=== PATIENT | male | born 1965 | race Caucasian/White ===

== ENCOUNTER 2023-08-15 08:51 | Outpatient (CLI) | payer BC, SELFPAY ==
--- NOTE | 2023-08-15 09:03 | ECG_ITS ---
SEE SCANNED COPY FOR CONFIRMED REPORT MTDD
== END 2023-08-15 08:52 | disposition home or self-care (01) ==
PROVIDERS: PCP Registered Nurse; Visit Provider Otolaryngology
DX: E78.5 Hyperlipidemia, unspecified (principal)
CPT/HCPCS: 93005

== ENCOUNTER 2023-08-21 03:44 | Day surgery (SDC) | payer BC, SELFPAY ==
[2023-08-14 12:58] VITALS: BMI 30.6
--- NOTE | 2023-08-14 13:11 | PC.NURSE ---
Report to the Outpatient Waiting Room, entrance under the green pavilion located off [facility], at time 7:30 on date 08/21/23. Planned Procedure Time: 9:30. Time changes happen often and if your time is changed the preop area will call you the afternoon before. - You and your visitor will be asked to self-screen and do not enter if you have any COVID symptoms. - A mask is optional within the hospital at this time. Patients may have clear liquids (water, carbonated beverages, clear teas, apple juice) until 3 hours prior to surgery (6:30) with a maximum of 20 ounces. - No food from midnight until time of surgery Take the following medications with a SIP of water the morning of surgery: METOPROLOL DO NOT STOP ANY OF YOUR OTHER PRESCRIPTION MEDICATIONS PRIOR TO SURGERY ?EXCEPT THE FOLLOWING Medications to discontinue per physician: VITAMINS/SUPPLEMENTS Date to take last dose: 08/17/[address] PHAM REGARDING ASPIRIN Please no make-up, nail belgian, hairspray, perfume, deodorant, or body powder the day of surgery. No jewelry (including any body piercings) or valuables the day of surgery, leave them at home. Please take a shower or bath the night before, or the morning of, surgery with an antibacterial soap. Wear comfortable, loose fitting clothing. - Jewelry must be removed prior to entering the operating room. Rings and piercings that are not removed may be cut off. - The hospital will not accept responsibility for valuables. - Please leave all valuables, including medications, at home the day of surgery. If you are going home after surgery, a licensed tractor trailer moving van driver must drive you home. - NO public transportation without another adult if you receive anesthesia. - We recommend that an adult stay with you for 24 hours following discharge. - We also recommend that you do not drive, make important decision, drink alcoholic beverages, or take any drugs that were not prescribed by your health care provider for at least 24 hours after your discharge time. Follow any additional instructions given to you from your surgeon. If you or anyone in your household have experienced Covid symptoms in the past week, please notify your surgeon or the nurse liaison at the phone number below for possible testing. Telephone instructions given to PT Elly LIGHT and asked if any additional questions and then verbalized understanding. Patient advised to call surgeon office or pre surgery nurse liaison [phone] if any additional questions.
[2023-08-21] VITALS (8 sets, daily range): BP systolic 112–128; BP diastolic 75–93; PULSE 53–64; RESP 14–17; TEMP 36.4; O2SAT 95–100; BMI 29.7
--- NOTE | 2023-08-21 07:13 | PM.IMHP ---
H&P: HPI History of Present Illness Date/Time: 08/21/23 07:13 Chief Complaint: vallecular cyst Narrative: chronic pharyngitis, vallecular cyst Review of Systems Review of Systems: All systems reviewed & are unremarkable except as noted in HPI and below PMFSH Social History Social History Smoking status: Never smoker Tobacco type: smokeless tobacco Smokeless tobacco user: chewing tobacco Smoking end date: 04/24/09 Alcohol intake: never Substance use: never Substance use type: does not use Living arrangements: with family Spiritual care concerns: No Meds Home Medications and Allergies Home Medications Medication Instructions Recorded Confirmed Type aspirin 81 mg capsule 81 mg PO DAILY 08/14/23 08/14/23 History atorvastatin 20 mg tablet 20 mg PO DAILY 08/14/23 08/14/23 History glucosamine sulf dipot 1 cap PO DAILY 08/14/23 08/14/23 History chlr,msm,chond 550 mg-C 30 mg-patricia 1 mg capsule (Glucosamine Chondroitin) metoprolol tartrate 25 mg tablet 25 mg PO BID 08/14/23 08/14/23 History Allergies Allergy/AdvReac Type Severity Reaction Status Date / Time No Known Allergies Allergy Verified 08/14/23 12:58 Exam Narrative: vallecular/BOT cyst noted on CT neck. rest of exam wnl. 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 r/b/a reviewed, all questions answered, pt understands and agrees to proceed. refer to outpt H&P for further details.
--- NOTE | 2023-08-21 07:14 | WPDHPUPDATE1 ---
History and Physical Update Update Date/Time: 08/21/23 07:14 History and Physical has been reviewed, including an updated exam of the patient. There are NO changes in the patient's condition. Risks, benefits, and alternatives have been discussed and questions answered. Patient agrees to proceed with procedure.
--- NOTE | 2023-08-21 08:39 | P.PNAN_ITS ---
Anes - Initial Pre Proc Eval Procedure: Operation Date: 08/21/23 09:30 Proposed Procedures p Direct Laryngoscopy with Biopsy - Ronald Lara MD Date/Time: 08/21/23 08:39 Surgeon: Ronald Lara MD Pre Op Diagnosis: Chronic Pharyngitis Patient Data Age: 58 Gender: M Height: 1.91 m Weight: 107.8 kg Last Vital Signs Temp 36.4 C L 08/21/23 08:16 Pulse 59 L 08/21/23 08:16 Resp 14 08/21/23 08:16 BP 116/86 08/21/23 08:16 Pulse Ox 97 08/21/23 08:16 O2 Del Method Room Air 08/21/23 08:16 Allergies Allergy/AdvReac Type Severity Reaction Status Date / Time No Known Allergies Allergy Verified 08/21/23 07:57 Home Medications Medication Instructions Recorded Confirmed Type aspirin 81 mg capsule 81 mg PO DAILY 08/14/23 08/14/23 History atorvastatin 20 mg tablet 20 mg PO DAILY 08/14/23 08/14/23 History glucosamine sulf dipot 1 cap PO DAILY 08/14/23 08/14/23 History chlr,msm,chond 550 mg-C 30 mg-patricia 1 mg capsule (Glucosamine Chondroitin) metoprolol tartrate 25 mg tablet 25 mg PO BID 08/14/23 08/14/23 History Patient hx anesthesia problems: none Family hx anesthesia problems: none Results Review: All pre-operative results and documents have been reviewed as part of the pre- operative evaluation. [facility] Past Medical History Medical History (Updated 08/21/23 @ 08:40 by Osman Sweeney MD) Overweight Surgical History Surgical History Heart valve replaced Social History Social History Smoking status: Never smoker Tobacco type: smokeless tobacco Smokeless tobacco user: chewing tobacco Smoking end date: 04/24/09 Alcohol intake: never Substance use: never Substance use type: does not use Living arrangements: with family Spiritual care concerns: No Anes - Eval Final PreProcedure Day of Procedure 08/21/23 08:39 Patient weight: overweight Heart: regular rate and rhythm Lungs: clear to auscultation Airway: Mallampati scale class II Neurological: alert and oriented Last oral intake: >/= 8 hours ASA classification: III Emergent: no Anesthetic plan: proceed Anesthesia type and monitoring: general ETT and standard monitoring Results Review: All pre-operative results and documents have been reviewed as part of the pre- operative evaluation. Informed Consent: The patient's anesthetic plan and its attendant risks and benefits were discussed with the patient/family/POA. Questions were solicited and answers provided to the satisfaction of the patient/family/POA.
[2023-08-21] MEDS: LACTATED RINGERS 1,000 ML 30 ML IV CONT (09:00)
--- NOTE | 2023-08-21 09:32 | W.PM.PROC2 ---
Procedure Note - Detailed Date of Procedure 08/21/23 Pre-op Diagnosis Chronic Pharyngitis Post-op Diagnosis Same Procedure Performed Direct Laryngoscopy with biopsy Surgeon Ronald Lara MD Anesthesia General Indications Vallecular cyst Findings Minimal tongue base cyst/vallecular cyst with prominent lingual tonsils. Description of Procedure On the date of surgery, the patient was identified in the preoperative holding area. All questions answered, consent signed and verified and they agreed to proceed. They were then brought to the OR and placed under general endotracheal anesthesia with a 6.5 sized endotracheal tube. A shoulder roll was placed. Timeout was performed verifying the correct patient identity and procedure to be performed which they were. The patient was then draped in standard fashion for direct laryngoscopy with biopsy. The bed was rotated 90 degrees counter-clockwise and a dental guard was placed to protect the upper teeth. A laryngoscope was then advanced in the oral cavity and upper airway to visualize all subsites of the oral cavity, oropharynx, hypopharynx and larynx. The only lesions noted were on the vallecula/base of tongue. The patient was then suspended from the hassan stand. Under endoscopic visualization, using biopsy forceps, these lesions were removed with minimal damage to the healthy mucosa. Minimal bleeding occurred and did not require significant intervention for hemostasis. With all specimen removed, the procedure was concluded. The laryngoscope was removed, the dental guard removed, and the oral cavity was examined showing no injury to lips, gums, teeth or tongue. Care of the patient was returned to anesthesia who extubated the patient and transferred to the PACU for recovery in stable condition without complication. Estimated Blood Loss 1 Drains No Packing No Pathology Yes (vallecula/base of tongue) Complications No immediate complications Condition Stable Disposition PACU
[2023-08-21] MEDS: ceFAZolin 2 GM/D5W 50 ML 2 GM/50 ML BAG IVPB (09:44)
== END 2023-08-21 11:30 | disposition home or self-care (01) ==
PROVIDERS: PCP Registered Nurse; Visit Provider Otolaryngology
PROC: 0CJS8ZZ Inspection of Larynx, Via Natural or Artificial Opening Endoscopic (ICD-10-PCS; CPT 31535; principal; 2023-08-21 09:30)
DX: K14.8 Other diseases of tongue (principal); F17.220 Nicotine dependence, chewing tobacco, uncomplicated; Z79.82 Long term (current) use of aspirin; Z95.2 Presence of prosthetic heart valve
CPT/HCPCS: 31535; 88305; A9270; J0690; J1100; J2250; J2405; J2704; J3010; J7120

== ENCOUNTER 2025-03-24 16:40 | Emergency (ER) | payer BC, OTHER, SELFPAY ==
--- OUTSIDE RECORDS SUMMARY | 2025-03-24 16:43 | XMS_ITS | Encounter Summary ---
Author Organization [facility] Address [address] [place] [address] Care Team Providers Care Retail Clerk Name Role Phone Unavailable Primary Care Provider Unavailabl e Encounter Details Date Type Department Care Team (Late st Contact Info) Description 08/02/2021 Lab Requisition [facility] DermPath Lab [address], [place] [address] Lopez Potter MD [address] [place] [address] Social History Tobacco Use Types Packs/Day Years Used Date Smoking Tobacco: Never Assessed Sex and Gender Information Value Date Recorded Sex Assigned at Not on file Legal Sex Male 3:37 PM CDT Gender Identity Not on file Sexual Orientation Not on file documented as of this encounter Plan of Treatment Not on file documented as of this encounter Procedures Procedure Name Priority Date/Time Associated Diagnosis Comments DERMATOPATHOLOGY Routine 07/30/2021 12:0 0 AM CDT documented in this encounter Results * DERMATOPATHOLOGY (07/30/2021 12:00 AM CDT) Case Report Dermatopathology Report Case: [id number] Authorizing Provider: Lopez Potter MD Collected: 07/30/2021 12:00 AM Ordering Location: [facility] DermPath Lab Received: 08/02/2021 04:31 PM Pathologist: Geno Hopkins MD Specimen: Skin, right shoulder 2 4:37 PM CDT DERMATOPATHOLOGY LABORATORY Final Diagnosis Specimen A. SKIN, right shoulder: NEUROFIBROMA (D36.10) 2 4:37 PM CDT DERMATOPATHOLOGY LABORATORY at 1637 CDT Clinical History Nevus R/O Atypia. Path# [id number] 2 4:37 PM CDT DERMATOPATHOLOGY LABORATORY Gross Description Specimen A: Received is one formalin filled container labeled with the patient's name and designated right shoulder. The specimen consists of a shave biopsy measuring [id number]. Jar 0. 2 4:37 PM CDT DERMATOPATHOLOGY LABORATORY Microscopic Description Specimen A. SKIN, right shoulder: Sections show a proliferation of spindled and S-shaped cells within the dermis. The stromal collagen is delicate and pale. 2 4:37 PM CDT DERMATOPATHOLOGY LABORATORY Disclaimer An external and internal positive and negative controls are appropriate for the histochemical, immunohistochemical and immunofluorescence stain(s) in this case (if any), except where stated explicitly. The performance characteristics of the stain(s) cited in this report were developed and its performance characteristic determined by the Dermatopathology Laboratory at [facility], directed by Dr. Megan Meier. These tests need not be, and therefore are not, approved by the [place] Food and Drug Administration. The tests are used for clinical purposes. Billing Codes Specimen Charges Stain Charges 22562 1 2 4:37 PM CDT DERMATOPATHOLOGY LABORATORY Embedded Images 2 4:37 PM CDT DERMATOPATHOLOGY LABORATORY Pathology/Cytolog y TISSUE SPECIMEN FROM SKIN / Unknown 07/30/2021 08/02/2021 4:31 PM CDT us Lopez Potter MD LAB - PATHOLOGY/CYTOLOGY ORDER EARLINE Final Result DERMATOPATHOLOGY LABORATORY [facility] - Department of Dermatology [address] [place] [address], [facility] [phone] documented in this encounter Visit Diagnoses Not on filedocumented in this encounter
--- OUTSIDE RECORDS SUMMARY | 2025-03-24 16:43 | XMS_ITS | Encounter Summary ---
Author Organization [facility] Address [address] [place] [address] Care Team Providers Care Housing Inspectors Name Role Phone Unavailable Primary Care Provider Unavailabl e Encounter Details Date Type Department Care Team (Late st Contact Info) Description 08/03/2022 Lab Requisition [facility] DermPath Lab [address], [place] [address] Lopez Potter MD [address] [place] [id number] Social History Tobacco Use Types Packs/Day Years [...] Priority Date/Time Associated Diagnosis Comments DERMATOPATHOLOGY Routine 08/03/2022 12:0 0 AM CDT documented in this encounter Results * DERMATOPATHOLOGY (08/03/2022 12:00 AM CDT) Case Report Dermatopathology Report Case: [id number] Authorizing Provider: Lopez Potter MD Collected: 08/03/2022 12:00 AM Ordering Location: [facility] DermPath Lab Received: 08/03/2022 03:42 PM Pathologist: Destiney Lazo MD Specimen: Skin, left anti-helix 11:29 AM CDT DERMATOPATHOLOGY LABORATORY Final Diagnosis Specimen A. SKIN, left anti-helix: SQUAMOUS CELL CARCINOMA IN SITU, PRESENT AT THE BASE OF THE SPECIMEN (D04.22) (see microscopic description and comment) 04/14/202 3 11:29 AM CDT DERMATOPATHOLOGY LABORATORY at 1129 CDT Clinical History AK vs. SCC Path: [id number] 3 11:29 AM CDT DERMATOPATHOLOGY LABORATORY Gross Description Specimen A: Received is one formalin filled container labeled with the patient's name and designated left anti-helix. The specimen consists of a shave biopsy measuring 4x3x1 mm. Jar 0. 3 11:29 AM CDT DERMATOPATHOLOGY LABORATORY Microscopic Description Specimen A. SKIN, left anti-helix: The epidermis shows parakeratosis, full thickness disorderly maturation of keratinocytes, mitoses at different levels, and dyskeratotic cells. The lesion extends to the base of the biopsy. COMMENT: An invasive squamous cell carcinoma cannot be ruled out. 3 11:29 AM CDT DERMATOPATHOLOGY LABORATORY Disclaimer An external and internal positive and negative controls are appropriate for the histochemical, immunohistochemical and immunofluorescence stain(s) in this case (if any), except where stated explicitly. The performance characteristics of the stain(s) cited in this report were developed and its performance characteristic determined by the Dermatopathology Laboratory at [facility], directed by Dr. Megan Meier. These tests need not be, and therefore are not, approved by the [place] Food and Drug Administration. The tests are used for clinical purposes. Billing Codes Specimen Charges Stain Charges 31124 1 3 11:29 AM CDT DERMATOPATHOLOGY LABORATORY Embedded Images 3 11:29 AM CDT DERMATOPATHOLOGY LABORATORY Pathology/Cytolog y TISSUE SPECIMEN FROM SKIN / Unknown 08/03/2022 08/03/2022 3:42 PM CDT us Lopez Potter MD LAB - PATHOLOGY/CYTOLOGY ORDER EARLINE Final Result DERMATOPATHOLOGY LABORATORY [facility] - Department of Dermatology [address] [place] [address], [facility] [phone] documented in this encounter Visit Diagnoses Not on filedocumented in this encounter
[2025-03-24 17:23] VITALS: BP 152/92; PULSE 70; RESP 16; TEMP 36.7; O2SAT 98
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
--- OUTSIDE RECORDS SUMMARY | 2025-03-24 21:19 | XMS_ITS | Encounter Summary ---
Author Organization [facility] Address [facility] [place] [address] Care Team Providers Care Cardiology Physician Assistant Name Role Phone Trent Mcdowell MD Primary Care Provider [phone] Maurice Acuña MD Unavailable [phone] Maurice Acuña MD Primary Care Provider [phone] Juany Turner DROSOPHERE OPERATOR Primary Care Provider [phone] Encounter Details Date Type Department Care Team (Late st Contact Info) Description 08/01/2017 Abstract [facility] at [address] [address] Elizabeth Min MA Social History Tobacco Use Types Packs/Day Years Used Date Smoking Tobacco: Never Assessed Sex and Gender Information Value Date Recorded Sex Assigned at Male 05/10/2021 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 [address] [place] [id number] Sis Silva PA [address] [facility], [address] [place] [address] documented as of this encounter Procedures Procedure Name Priority Date/Time Associated Diagnosis Comments CBC (OUTSIDE LAB) Routine 08/09/2016 COMPREHENSIVE METABOLIC PANEL Routine 08/09/2016 LIPID PANEL Routine 08/09/2016 THYROID STIM HORMONE TSH Routine 08/09/2016 documented in this encounter Results * THYROID STIM HORMONE, TSH (08/09/2016) TSH 1.73 08/09/2016 us Doc [facility] Final Result * LIPID PANEL (08/09/2016) CHOLESTEROL 230 HDL 41 TRIGLYCERIDES 124 LDL (CALCULATED) 164.2 08/09/2016 us Doc [facility] Final Result * (ABNORMAL) COMPREHENSIVE METABOLIC PANEL (08/09/2016) SODIUM S/P/B 141 POTASSIUM S/P/B 4.5 CO2 27 CHLORIDE S/P/B 107 GLUCOSE 94 mg/dL CALCIUM S/P/B 9.8 BUN 19 CREATININE S/P/B 0.96 0.7 - 1.3 EGFR NON-AFR. AMER. >60 <=90 ALKALINE PHOSPHATASE S/P/B 69 ALT 22 AST 23 BILIRUBIN TOTAL S/P/B 0.7 ALBUMIN S/P/B 2.0(A) 3.5 - 5.0 TOTAL PROTEIN S/P/B 7.1 08/09/2016 us Doc [facility] Final Result * CBC (OUTSIDE LAB) (08/09/2016) WBC 6.9 HGB 16.5 HCT 47.9 PLT 233 08/09/2016 us Doc [facility]-OUTSIDE/ABSTRACTED Final Result documented in this encounter Visit Diagnoses Not on filedocumented in this encounter Care Teams Cardiology Physician Assistant Relationship Specialty Start Date End Date Trent Mcdowell MD [address] [place] [address] [address] [place], [place] [id number] PCP - General FAMILY PRACTICE 07/23/17 09/08/18 Maurice Acuña MD [address] [place], [place] [address] PCP - General INTERVENTIONAL CARDIOLOGY 09/09/18 10/17/18 Juany Turner FNP [address] [place], [place] [address] PCP - General Nurse Practitioner Family 03/19/19 Maurice Acuña MD [address] [place], [place] [address] Hampton Oim Architect CARDIOVASCULAR DISEASE 08/01/17 documented as of this encounter
--- OUTSIDE RECORDS SUMMARY | 2025-03-24 21:19 | XMS_ITS | Encounter Summary ---
Author Organization [facility] Address [facility] [place] [address] Care Team Providers Care Pellet Machine Operator Name Role Phone Trent Mcdowell MD Primary Care Provider + [phone] Maurice Acuña MD Unavailable [phone] Maurice Acuña MD Primary Care Provider [phone] Juany Turner ORACLE SECURITY CONSULTANT Primary Care Provider [phone] Encounter Details Date Type Department Care Team (Late st Contact Info) Description 11/22/2017 [facility] at [address] [address] Elizabeth Min MA Social History Tobacco Use Types Packs/Day Years Used Date Smoking Tobacco: Never Smokeless Tobacco: Former Chew Alcohol Use Standard Drinks/Week Comments Yes 0 (1 standard drink = 0.6 oz pur e alcohol) Occasional Sex and Gender Information Value Date Recorded Sex Assigned at Male 05/10/2021 3:22 PM YARN WASHER Legal Sex Male 7:08 PM CDT Gender Identity Male 05/10/2021 3:22 PM YARN WASHER Sexual Orientation Straight 05/10/2021 3: 22 PM YARN WASHER 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 Answer Date of Assessment Author Status No 08/25/2017 5:05 PM CDT Activ e * Do you have serious difficulty walking or climbing stairs? Answer Date of Assessment Author Status No 08/25/2017 5:05 PM CDT Sena Fowler NP Active * Do you have difficulty dressing or bathing? Answer Date of Assessment Author Status No 08/25/2017 5:05 PM CDT Sena Fowler NP Active * Because of a physical, mental, or emotional condition, do you have difficulty doing errands alone such as visiting a doctor's office or shopping? Answer Date of Assessment Author Status No 08/25/2017 5:05 PM CDT Sena Fowler NP Active documented as of this encounter Mental Status * Because of a physical, mental, or emotional condition, do you have serious difficulty concentrating, remembering, or making decisions? Answer Entry Date Author Status No 08/25/2017 5:05 PM CDT Sena Fowler NP Active documented in this encounter Plan of Treatment Upcoming Encounters Date Type Department Care Team (Late st Contact Info) Description 02/06/2026 12:00 PM CDT Office Visit [facility] [address] [place] [address] Sis Silva PA [address] [place] [address], [address] [place] [address] documented as of this encounter Procedures Procedure Name Priority Date/Time Associated Diagnosis Comments COMPREHENSIVE METABOLIC PANEL Routine 06/19/2024 LIPID PANEL Routine 06/19/2024 THYROID STIM HORMONE TSH Routine 06/19/2024 CBC (OUTSIDE LAB) Routine 11/28/2017 COMPREHENSIVE METABOLIC PANEL Routine 11/28/2017 BASIC METABOLIC PANEL Routine 11/14/2017 THYROID STIM HORMONE TSH Routine 11/14/2017 documented in this encounter Results * COMPREHENSIVE METABOLIC PANEL (06/19/2024) Pathologist [facility] SODIUM S/P/B 141 GLUCOSE 92 mg/dL AST 56 BUN 16 CREATININE S/P/B 0.91 0.7 - 1.3 CALCIUM S/P/B 9.7 POTASSIUM S/P/B 4.5 CHLORIDE S/P/B 104 ALT 30 GFR ESTIMATE >60 Default History Genericprovider LABORATORY Final Result * LIPID PANEL (06/19/2024) Pathologist [facility] CHOLESTEROL 198 TRIGLYCERIDES 202 HDL 39 DIRECT LDL 111 Default History Genericprovider LABORATORY Final Result * THYROID STIM HORMONE TSH (06/19/2024) Pathologist [facility] TSH 1.710 Default History Genericprovider LABORATORY Final Result * CBC (OUTSIDE LAB) (11/28/2017) [facility] WBC 6.6 HGB 14.4 HCT 43.5 PLT 302 11/28/2017 Doc [facility] LAB-OUTSIDE/ABSTRACTED Final Result * COMPREHENSIVE METABOLIC PANEL (11/28/2017) Pathologist [facility] SODIUM S/P/B 140 POTASSIUM S/P/B 4.1 CO2 25.7 CHLORIDE S/P/B 103 GLUCOSE 93 mg/dL CALCIUM S/P/B 9.4 BUN 18 CREATININE S/P/B 0.94 0.7 - 1.3 EGFR AFR. AMER. >90 EGFR NON-AFR. AMER. >90 <=90 ALKALINE PHOSPHATASE S/P/B 103 ALT 35 AST 32 BILIRUBIN TOTAL S/P/B 0.8 ALBUMIN S/P/B 3.7 3.5 - 5.0 TOTAL PROTEIN S/P/B 7.7 11/28/2017 us Doc [facility] LABORATORY Final Result * THYROID STIM HORMONE, TSH (11/14/2017) TSH 1.551 11/14/2017 us Doc [facility] LABORATORY Final Result * BASIC METABOLIC PANEL (11/14/2017) SODIUM S/P/B 140 POTASSIUM S/P/B 4.0 CO2 27.8 CHLORIDE S/P/B 105 GLUCOSE 97 mg/dL CALCIUM S/P/B 9.3 BUN 17 CREATININE S/P/B 0.87 0.7 - 1.3 EGFR AFR. AMER. >90 EGFR NON-AFR. AMER. >90 <=90 11/14/2017 us Doc [facility] LABORATORY Final Result documented in this encounter Visit Diagnoses Not on filedocumented in this encounter Care Teams Pellet Machine Operator Relationship Specialty Start Date End Date Trent Mcdowell MD [address] [place] [address] [place], [place] [id number] PCP - General FAMILY PRACTICE 07/23/17 09/08/18 Maurice Acuña MD [facility] [address] [address] PCP - General INTERVENTIONAL CARDIOLOGY 09/09/18 10/17/18 Juany Turner FNP [address] [place] [address] PCP - General Nurse Practitioner Family 03/19/19 Maurice Acuña MD [facility] [address] [place] [address] [place] Clothing Pattern Preparer CARDIOVASCULAR DISEASE 08/01/17 documented as of this encounter
--- OUTSIDE RECORDS SUMMARY | 2025-03-24 21:19 | XMS_ITS | Encounter Summary ---
Author Organization [facility] Address [facility] [place] [address] Care Team Providers Care Practice Office Associate Name Role Phone Trent Mcdowell MD Primary Care Provider [phone] Maurice Acuña MD Unavailable [phone] Maurice Acuña MD Primary Care Provider [phone] Juany Turner INBOUND SALES REPRESENTATIVE Primary Care Provider [phone] Encounter Details Date Type Department Care Team (Late st Contact Info) Description 08/09/[address] [facility] [place] [address] Maurice Acuña MD [facility] [address] [place] [address] Social History Tobacco Use Types Packs/Day Years Used Date Smoking Tobacco: Never Smokeless Tobacco: Former Chew Alcohol Use Standard Drinks/Week Comments Yes 0 (1 standard drink = 0.6 oz pur e alcohol) little Sex and Gender Information Value Date Recorded Sex Assigned at Male 05/10/2021 3:22 PM RN ADMISSIONS Legal Sex Male 7:08 PM CDT Gender Identity Male 05/10/2021 3:22 PM RN ADMISSIONS Sexual Orientation Straight 05/10/2021 3 :22 PM RN ADMISSIONS Occupation Industry Job Start Date Job End Date Not on file Not on file Not on file Not on file documented as of this encounter Plan of Treatment Upcoming Encounters Date Type Department Care Team (Late st Contact Info) Description 02/06/2026 12:00 PM CDT Office Visit [facility] [address] [place] [address] Sis Silva PA [address] [facility] [address] [place] [address] documented as of this encounter Visit Diagnoses Not on filedocumented in this encounter Care Teams Practice Office Associate Relationship Specialty Start Date End Date Trent Mcdowell MD [address] [place] [address] [place] [id number] PCP - General FAMILY PRACTICE 07/23/17 09/08/18 Maurice Acu[facility] MD [facility] [address] [place], [place] [address] PCP - General INTERVENTIONAL CARDIOLOGY 09/09/18 10/17/18 Juany Turner FNP [facility] [address] [place] [address] PCP - General Nurse Practitioner Family 03/19/19 Maurice Acu[facility] MD [facility] [address] [place], [place] [address] [place] Supervisor Microfilm Duplicating Unit CARDIOVASCULAR DISEASE 08/01/17 documented as of this encounter
--- OUTSIDE RECORDS SUMMARY | 2025-03-24 21:19 | XMS_ITS | Clinical Summary ---
Author Organization [facility] Address [address] [place] [address] Care Team Providers Care Group Work Program Aide Name Role Phone Maurice Acuña MD Unavailable [phone] Juany Turner VENDING MACHINE COIN COLLECTOR Primary Care Provider [phone] Allergies No known active allergies Medications Coenzyme Q10 (COQ-10) 100 MG Cap Take 1 capsule by mouth every morning. 8 Active Misc Natural Products (GLUCOSAMINE CHONDROITIN ADV) Tab Take 1 tablet by mouth daily. 8 Active aspirin (CVS ASPIRIN ADULT LOW DOSE) 81 MG chewable tabletIndications:P resence of prosthetic heart valve Chew 1 tablet (81 mg total) by mouth daily. 2 Active famotidine (PEPCID) 20 MG tablet Take 1 tablet (20 mg total) by mouth daily as needed for Heartburn. Active fexofenadine (MARTÍN) 180 MG tablet Take 1 tablet (180 mg total) by mouth daily as needed for Allergies. Active ibuprofen (MOTRIN) 200 MG tablet Take 2 tablets (400 mg total) by mouth every 6 (six) hours as needed for Pain. Active atorvastatin (LIPITOR) 20 MG tabletIndications:M ixed hyperlipidemia Take 1 tablet (20 mg total) by mouth daily. 90 tablet 3 5 Active metoprolol tartrate (LOPRESSOR) 25 MG tablet Take 1 tablet (25 mg total) by mouth 2 (two) times daily. 180 tablet 3 5 Active Active Problems Problem Noted Date Diagnosed Date Abnormal radiologic findings on diagnostic imaging of left kidney 03/19/2019 Presence of prosthetic heart valve 12/14/2017 Overview (08/13/2018): Note: DR TESS EMERSON Date Onset: 08/10/2017 Date Onset: 12/14/2017 Assessment & Plan (01/31/2025 2:04 PM CDT): He is status post surgical AVR. He had an echo in January 2024 that showed a well-functioning bioprosthetic aortic valve. Can consider repeating an echo in 2026. Assessment & Plan (01/26/2024 9:45 AM CDT): Check echo this year. Continue antibiotic prophylaxis prior to dental procedures. Nonrheumatic aortic valve insufficiency 08/29/19 Overview (08/13/2018): Date Onset: 08/10/17 Assessment & Plan (05/05/2023 8:13 PM ENVIRONMENTAL AIR SPECIALIST): He presented with severe aortic regurgitation upon establishing care with cardiology. He subsequent underwent surgical aortic valve replacement. He is doing well. We can repeat an echo next year. Continue antibiotic prophylaxis prior to dental procedures. Assessment & Plan (02/07/2022 12:07 PM CDT): He presented with severe aortic regurgitation upon establishing care with cardiology. He subsequent underwent surgical aortic valve replacement. He is doing well. We can repeat an echo next year. Continue antibiotic prophylaxis prior to dental procedures. Assessment & Plan (12/18/2020 1:58 PM CDT): He has a history of severe aortic regurgitation and is status post aortic valve replacement. He had an echocardiogram this year that showed a well-functioning bioprosthetic aortic valve. Continue metoprolol. Continue antibiotic prophylaxis prior to any dental procedure. Hemorrhoids 09/10/2013 Overview (08/13/2018): Date Onset: 09/10/2013 Mixed hyperlipidemia 09/28/2011 Assessment & Plan (01/31/2025 2:04 PM CDT): His LDL is 128. His current ASCVD risk score is 6.2%. I do not think that we need to make an adjustment to the dosage of his atorvastatin. Assessment & Plan (01/26/2024 9:46 AM CDT): His LDL is 128. His current ASCVD risk score is 6.2%. I do not think that we need to make an adjustment to the dosage of his atorvastatin. Assessment & Plan (05/05/2023 8:14 PM ENVIRONMENTAL AIR SPECIALIST): Continue atorvastatin. Assessment & Plan (02/07/2022 12:05 PM CDT): Continue atorvastatin. Assessment & Plan (12/18/2020 1:58 PM CDT): His last lipid panel was from 2018. Continue atorvastatin and he will require another lipid panel. Resolved Problems Problem Noted Date Diagnosed Date Resolved Date History of aortic valve replacement 09/04/2018 01/22/2019 Knee pain 2018 07/21/2021 GERD without esophagitis 01/23/2018 Overview (04/03/2018): Date Onset: 01/23/2018 Mixed hyperlipidemia 11/19/2017 019 Status post aortic valve replacement 09/18/2017 02/25/2019 Transient global amnesia 08/24/201704/2018 History of aortic valve disease 08/22/2017 01/22/2019 Overview (08/13/2018): Date Onset: 08/22/2017 Aortic insufficiency 08/10/2017 018 History of aortic regurgitation 08/09/2017 02/25/2019 Malignant neoplasm of scalp and skin of neck 4 01/22/2019 Overview (08/13/2018): Date Onset: 09/10/2013 Dyslipidemia 01/22/2019 Encounters Date Type Department Care Team Description 01/31/2025 12:15 PM CDT Office Visit [facility] [address] [place] [address] Maurice Acuña MD Aortic Valve Disorder; Lipids 01/31/2025 Travel from Last 3 Months Immunizations Immunization Administration Dates Next Due Fluzone 6 Months+ Quad (0.5 mL Prefilled Syringe) 02/05/2020,01/22/2019 Influenza (Generic) 01/23/2018,02/03/2016,2013 Influenza Adult (Generic) 01/22/2019,01/23/2018, 02/02/2016 MODERNA COVID-19 (12+) MRNA, LNP-S, PF, 100 MCG/ 0.5 ML DOSE 06/24/2020,05/27/2020 Tdap (Generic) 02/25/2019 Tdap (Historical Only-select from magnify glass) 02/25/2019 Family History Medical History Relation Comments Shortness of breath Brother Having heat testing done Heart Attack Father On transplant laxmi chiang Had complications and then Cancer Maternal Uncle 1 Cancer Maternal Uncle 2 Cancer Maternal Uncle 3 Cancer Mother Diabetes Mother Stroke Mother mini stroke from leaking heart valve for 20 years Relation Status Comments Brother Alive Father (Age 51) Maternal Grandfather Maternal Grandmother Maternal Uncle 1 Maternal Uncle 2 Maternal Uncle 3 Mother Alive Paternal Grandfather Paternal Grandmother Social History Tobacco Use Types Packs/Day Years Used Date Smoking Tobacco: Never Smokeless Tobacco: Former Chew Quit: 09/22/2005 Tobacco Cessation:Counseling Given: Not Answered Alcohol Use Standard Drinks/Week Comments Yes 1 (1 standard drink = 0.6 oz pure alcohol) Occasional- 1-2 times per month PHQ-2 Answer Date Recorded Patient Health Questionnaire-2 Score 0 05/11/2023 Education Answer Date Recorded What is the highest level of school you have completed or the highest degree you have received? 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 Not on file Not on file Last Filed Vital Signs Vital Sign Reading Time Taken Comments Blood Pressure 120/86 01/31/2025 12:10 PM CDT Pulse 61 01/31/2025 12:10 PM CDT Temperature 36.4 C (97.6 F) 11/28/2023 1:55 PM CDT Respiratory Rate 16 11/28/2023 1:55 PM CDT Oxygen Saturation 98% 01/31/2025 12:10 PM CDT Inhaled Oxygen Concentration - - Weight 107.5 kg (237 lb) 01/31/2025 12:10 PM CDT Height 190.5 cm (6' 3) 01/31/2025 12:10 PM CDT Body Mass Index 29.62 01/31/2025 12:10 PM CDT Plan of Treatment Upcoming Encounters Date Type Department Care Team (Late st Contact Info) Description 02/06/2026 12:00 PM CDT [facility] [address] [place] [address] Sis Silva PA [address] [place] [address], [address] [place] [address] Health Maintenance Due Date Last Done Comments Annual Physical 08/16/1967 Pneumococcal Vaccine: 50+ Years (1 of 2 - PCV) 08/16/1983 Colorectal Cancer Screening Colonoscopy (10 Years) 10/17/2023 10/16/2013, 04/20/2011 PHQ-2 (Physician [place]) 04/24/2024 05/11/2023 RSV Immunization or 60+ Years (1 - Risk 60-74 years 1-dose series) 2024 COVID-19 Vaccine ( - season) 2024 02/22/2021, 06/24/2020, 05/27/2020 Influenza Adult (#1) 2025 02/23/2022, 03/19/2021, 02/05/2020, Additional history exists DTaP, Tdap and Td Vaccines (3 - Td or Tdap) 02/25/2029 02/25/2019, 02/25/2019 Hepatitis C Completed 03/04/2019 Zoster Vaccines Completed 02/28/2023, 12/09/2022 Hepatitis A Vaccines Aged Out No long er eligible based on patient's age to complete this topic Meningococcal B Vaccine Aged Out No l onger eligible based on patient's age to complete this topic Meningococcal Vaccine Aged Out No aracely renard eligible based on patient's age to complete this topic RSV Immunizations Under 20 Months Aged Out No longer eligible based on patient's age to complete this topic Medical Devices Implanted Type Area Cupola Melting Supervisor Device Identifier Shelf Expiration Date Model / Serial / Lot Valve Mitral Mosaic 27mm - [id number] Implanted:Qty: 1 on 08/10/2017 by Daily, Nicolas Dotson MD at [facility] Valve Implant N/A: Heart [employer] - CARDIAC SURGERY - DIV MEDTRO 09/22/2021 / [id number] / Kevin/Wire Ii Sternotomy Suture Kit Implanted:Qty: 1 on 08/10/2017 by Daily, Nicolas Dotson MD at [facility] Wire N/A: Sternum A&Accipiter Radar 05/25/2022 [id number] / / [id number] Kevin/Wire Ii Sternotomy Suture 1/2 Cherie, [id number] Implanted:Qty: 1 on 08/10/2017 by Daily, Nicolas Dotson MD at [facility] Wire N/A: Sternum A&Accipiter Radar 04/24/2022 [id number] / / [id number] Procedures Procedure Name Priority Date/Time Associated Diagnosis Comments HEPATITIS C ANTIBODY Routine 03/04/2019 9:23 AM ENVIRONMENTAL AIR SPECIALIST Screening examination for poliomyelitis Abdominal pain, generalized Nausea COLONOSCOPY GENERIC (SCAN ORDER) Routine 10/16/2013 from Last 3 Months or Most Recently Relevant to Health Maintenance Results * HEPATITIS C ANTIBODY (03/04/2019 9:23 AM ENVIRONMENTAL AIR SPECIALIST) HEPATITIS C AB NON-REACTI VE NON-REACTI VE 03/04/2019 2:59 PM ENVIRONMENTAL AIR SPECIALIST [facility] 03/04/2019 9:23 AM ENVIRONMENTAL AIR SPECIALIST [facility] Final Res ult [facility] [address] [place] [address], * COLONOSCOPY (10/16/2013) us Documents Scanned SCANNING Final Result from Last 3 Months or Most Recently Relevant to Health Maintenance Insurance [facility] Advance Directives * Full Code (Latest Code Status on File) Date Activated Date Inactivated Comments 08/09/2017 4:38 PM 08/16/2017 2:09 PM Care Teams Group Work Program Aide Relationship Specialty Start Date End Date Juany Turner FNP [facility] [place], [place] [address] PCP - General Nurse Practitioner Family 03/19/19 Maurice Acuña MD [facility] [address] [place], [place] [address] [place] Cook Sauce CARDIOVASCULAR DISEASE 08/01/17
--- OUTSIDE RECORDS SUMMARY | 2025-03-24 21:19 | XMS_ITS | Clinical Summary ---
Author Organization [facility] Address [address] [facility] [place] [address] Care Team Providers Care Onshore Diver Name Role Phone Unavailable Primary Care Provider Unavailabl e Source Comments [facility],non-owned Affiliates and Associated Physician Practices is amultiple site organization consisting of ambulatory clinics and hospital sitesin [place], [place], [place] and [place]. This disclosure is being madepursuant to the Care Everywhere program and may not contain all information available regarding this patient. Last updated 18.[facility] Social History Tobacco Use Types Packs/Day Years Used Date Smoking Tobacco: Never Assessed Sex and Gender Information Value Date Recorded Sex Assigned at Not on file Legal Sex Male 3:37 PM CDT Gender Identity Not on file Sexual Orientation Not on file Plan of Treatment Health Maintenance Due Date Last Done Comments COLOGUARD (AGES 45-75) - COL ON CA SCREENING 1964 COLON MONITORING 1964 COLONOSCOPY - COLON CA SCREENING 1964 CT COLONOGRAPHY - COLON CA SCREENING 1964 Colorectal Cancer Screening 1964 FIT - COLON CA SCREENING 1964 FLEX SIG - COLON CA SCREENING 1964 LIPID TESTING 1964 HIV SCREENING 08/16/1979 HEPATITIS C SCREENING 08/11/1982 DTAP/TDAP/TD VACCINES (1 - Tdap) 08/16/1983 PNEUMOCOCCAL VACCINE 50+ (1 of 1 - PCV) 2014 ZOSTER VACCINE (1 of 2) 2014 DEPRESSION SCREENING 04/24/2024 COVID-19 VACCINE (1 - 2024-2 6 season) 2024 INFLUENZA VACCINE (#1) 2024 Respiratory Syncytial Virus (RSV) Vaccine Pt: or over 60 yrs (1 - 1-dose 75+ series) 08/16/2039 HEPATITIS B VACCINE Aged Out No longe r eligible based on patient's age to complete this topic HIB VACCINE Aged Out No longer eligi ble based on patient's age to complete this topic HPV VACCINE Aged Out No longer eligi ble based on patient's age to complete this topic MENINGOCOCCAL (Group B) VACC INE SHARED DECISION-MAKING Aged Out No longer eligibl e based on patient's age to complete this topic MENINGOCOCCAL GROUPS A/C/Y/W VACCINE Aged Out No longer eligible b ased on patient's age to complete this topic Insurance * Guarantor: RENE ORTIZ Account Type Relation to Patient Date of Phone Billing Address Personal/Family [address] [place] [address] [facility] SELF PAY NO INSURANCE Member Subscriber Plan / Payer (Ef fective for All Dates) Name:Rene Ortiz Member ID:Not on file Relation to Subscriber:Not on file Name:RENE ORTIZ Subscriber ID:Not on file (Home) Address: [facility] [place] [address] Payer ID:Not on file Group ID:Not on file Type:Self Pay Address: [place], [place] * Guarantor: RENE ORTIZ Account Type Relation to Patient Date of Phone Billing Address Personal/Family [address] [place] [address] [facility] SELF PAY NO INSURANCE Member Subscriber Plan / Payer (Ef fective for All Dates) Name:Rene Ortiz Member ID:Not on file Relation to Subscriber:Not on file Name:RENE ORTIZ Subscriber ID:Not on file (Home) Address: [address] [place] [address] [address] [place] [address] Payer ID:Not on file Group ID:Not on file Type:Self Pay Address: [place], [place] * Guarantor: RENE ORTIZ Account Type Relation to Patient Date of Phone Billing Address Personal/Family [address] [facility] [address] [place] [address] [facility] SELF PAY NO INSURANCE Member Subscriber Plan / Payer (Ef fective for All Dates) Name:Rene Ortiz Member ID:Not on file Relation to Subscriber:Not on file Name:RENE ROTIZ Subscriber ID:Not on file (Home) Address: [address] [place] [address] Payer ID:Not on file Group ID:Not on file Type:Self Pay Address: [place]
--- OUTSIDE RECORDS SUMMARY | 2025-03-24 21:19 | XMS_ITS | Encounter Summary ---
Author Organization 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 Alcohol Use Standard Drinks/Week Comments Yes 1 (1 standard drink = 0.6 oz pure alcohol) Occasional- 1-2 times per month PHQ-2 Answer Date Recorded PHQ-2 Score - If the patient scores above 3, please move on to questions 3-9 0 09/14/2020 Sex and Gender Information Value Date Recorded Sex Assigned at Male 05/10/2021 3:22 PM [employer] MECH[employer]IC Legal Sex Male 7:08 PM CDT Gender Identity Male 05/10/2021 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 Unable to assess 12/11/2020 10:34 AM CDT documented as of this encounter Functional Status [...] Description 02/06/2026 12:00 PM CDT [facility] [address] [place] [id number] Sis Silva PA [address] [facility], [address] [place] [address] documented as of this encounter Procedures Procedure Name Priority Date/Time Associated Diagnosis Comments CBC, MANUAL DIFF Routine 06/19/2024 COMPREHENSIVE METABOLIC PANEL Routine 06/22/2022 LIPID PANEL Routine 06/22/2022 CBC, MANUAL DIFF Routine 06/22/2022 THYROID STIM HORMONE TSH Routine 06/22/2022 COMPREHENSIVE METABOLIC PANEL Routine 07/15/2020 LIPID PANEL Routine 07/15/2020 THYROID STIM HORMONE TSH Routine 07/15/2020 documented in this encounter Results * CBC, MANUAL DIFF (06/19/2024) WBC 8.4 HGB 17.1 HCT 50.6 PLT 228 Default History Genericprovider LABORATORY Final Result * COMPREHENSIVE METABOLIC PANEL (06/22/2022) SODIUM S/P/B 138 GLUCOSE 65 mg/dL AST 23 BUN 14 CREATININE S/P/B 0.90 0.7 - 1.3 CALCIUM S/P/B 9.4 POTASSIUM S/P/B 3.3 CHLORIDE S/P/B 101 ALT 28 GFR ESTIMATE >60 Narrative Resulting Agency Comment Default History Genericprovider LABORATORY Final Result * LIPID PANEL (06/22/2022) CHOLESTEROL 209 TRIGLYCERIDES 193 HDL 41 DIRECT LDL 118 Narrative Resulting Agency Comment Default History Genericprovider LABORATORY Final Result * CBC, MANUAL DIFF (06/22/2022) WBC 7.1 HGB 16.7 HCT 51.0 PLT 231 Narrative Resulting Agency Comment Default History Genericprovider LABORATORY Final Result * THYROID STIM HORMONE, TSH (06/22/2022) Pathologist [facility] TSH 1.540 Narrative Resulting Agency Comment Default History Genericprovider LABORATORY Final Result * THYROID STIM HORMONE, TSH (07/15/2020) TSH 1.580 07/15/2020 us Doc [facility] Abstract LABORATORY Final Result * LIPID PANEL (07/15/2020) CHOLESTEROL 200 HDL 46 TRIGLYCERIDES 147 DIRECT LDL 130 07/15/2020 us Doc [facility] Abstract LABORATORY Final Result * COMPREHENSIVE METABOLIC PANEL (07/15/2020) SODIUM S/P/B 143 POTASSIUM S/P/B 5.5 CO2 30 CHLORIDE S/P/B 107 GLUCOSE 111 mg/dL CALCIUM S/P/B 10.3 BUN 17 CREATININE S/P/B 1.0 0.7 - 1.3 EGFR NON-AFR. AMER. >60 <=90 ALKALINE PHOSPHATASE S/P/B 78 ALT 28 AST 32 BILIRUBIN TOTAL S/P/B 1.0 ALBUMIN S/P/B 4.6 3.5 - 5.0 TOTAL PROTEIN S/P/B 8.0 07/15/2020 us Doc [facility] Abstract LABORATORY Final Result documented in this encounter Visit Diagnoses Not on filedocumented in this encounter Care Teams Brand Planner Relationship Specialty Start Date End Date Juany Turner FNP [address] [place] [address] PCP - General Nurse Practitioner Family 03/19/19 Maurice Acuña MD [address] [place] [address] [place] Centralized Traffic Control Operator CARDIOVASCULAR DISEASE 08/01/17 documented as of this encounter
--- OUTSIDE RECORDS SUMMARY | 2025-03-24 21:19 | XMS_ITS | Encounter Summary ---
Author Organization [facility] Address [address] [facility] [place] [address] Care Team Providers Care Director Of Dementia Operations Name Role Phone Unavailable Primary Care Provider Unavailabl e Encounter Details Date Type Department Care Team (Late st Contact Info) Description 08/02/[address] [facility] DermPath Lab [address], [place] [address] Lopez Potter MD [address] [place] [address] Social History Tobacco Use Types Packs/Day Years [...] AM CDT) Case Report Dermatopathology Report Case: [id number] Authorizing Provider: Lopez Potter MD Collected: 07/30/2021 12:00 AM Ordering Location: [facility] DermPath Lab Received: 08/02/2021 04:31 PM Pathologist: Geno Hopkins MD Specimen: Skin, right shoulder 2 4:37 PM CDT DERMATOPATHOLOGY LABORATORY Final Diagnosis Specimen A. SKIN, right shoulder: NEUROFIBROMA (D36.10) 2 4:37 PM CDT DERMATOPATHOLOGY LABORATORY at 1637 CDT Clinical History Nevus R/O Atypia. Path# [id number] 2 4:37 PM CDT DERMATOPATHOLOGY LABORATORY Gross Description Specimen A: Received is one formalin filled container labeled with the patient's name and designated right shoulder. The specimen consists of a shave biopsy measuring [id number]. Jar 0. 2 4:37 PM CDT DERMATOPATHOLOGY [...] characteristic determined by the Dermatopathology Laboratory at [facility], directed by Dr. Megan Meier. These tests need not be, and therefore are not, approved by the [place] Food and Drug Administration. The tests are used for clinical purposes. Billing Codes Specimen Charges Stain Charges 64047 1 2 4:37 PM CDT DERMATOPATHOLOGY LABORATORY Embedded Images 2 4:37 PM CDT DERMATOPATHOLOGY LABORATORY Pathology/Cytolog y TISSUE SPECIMEN FROM SKIN / Unknown 07/30/2021 08/02/2021 4:31 PM CDT us Lopez Potter MD LAB - PATHOLOGY/CYTOLOGY ORDER EARLINE Final Result DERMATOPATHOLOGY LABORATORY [facility] - Department of Dermatology [address] [place] [address], [facility] [phone] documented in this encounter Visit Diagnoses Not on filedocumented in this encounter
--- OUTSIDE RECORDS SUMMARY | 2025-03-24 21:19 | XMS_ITS | Encounter Summary ---
Author Organization [facility] Address [address] [facility] [place] [address] Care Team Providers Care Church Business Administrator Name Role Phone Unavailable Primary Care Provider Unavailabl e Encounter Details Date Type Department Care Team (Late st Contact Info) Description 08/03/2022 Lab Requisition [facility] DermPath Lab [address] [facility], [place] [address] Lopez Potter MD [address] [place], [place] [id number] Social History Tobacco Use Types Packs/Day Years [...] AM CDT) Case Report Dermatopathology Report Case: [id number] Authorizing Provider: Lopez Potter MD Collected: 08/03/2022 12:00 AM Ordering Location: [facility] DermPath Lab Received: 08/03/2022 03:42 PM Pathologist: Destiney Lazo MD Specimen: Skin, left anti-helix 11:29 AM CDT DERMATOPATHOLOGY LABORATORY Final Diagnosis Specimen A. SKIN, left anti-helix: SQUAMOUS CELL CARCINOMA IN SITU, PRESENT AT THE BASE OF THE SPECIMEN (D04.22) (see microscopic description and comment) 04/14/202 3 11:29 AM CDT DERMATOPATHOLOGY LABORATORY at 1129 CDT Clinical History AK vs. SCC Path: [id number] 3 11:29 AM CDT DERMATOPATHOLOGY LABORATORY Gross [...] characteristic determined by the Dermatopathology Laboratory at [facility], directed by Dr. Megan Meier. These tests need not be, and therefore are not, approved by the [place] Food and Drug Administration. The tests are used for clinical purposes. Billing Codes Specimen Charges Stain Charges 02222 1 3 11:29 AM CDT DERMATOPATHOLOGY LABORATORY Embedded Images 3 11:29 AM CDT DERMATOPATHOLOGY LABORATORY Pathology/Cytolog y TISSUE SPECIMEN FROM SKIN / Unknown 08/03/2022 08/03/2022 3:42 PM CDT us Lopez Potter MD LAB - PATHOLOGY/CYTOLOGY ORDER EARLINE Final Result DERMATOPATHOLOGY LABORATORY [facility] - Department of Dermatology [address] [place] [address], [facility] [phone] documented in this encounter Visit Diagnoses Not on filedocumented in this encounter
[2025-03-24 21:27] VITALS: BP 140/100
== END 2025-03-24 21:28 | disposition home or self-care (01) ==
LOC: ANHED 21:17
PROVIDERS: Emergency Provider Physician Assistant; PCP Registered Nurse
DX: Z04.1 Encounter for examination and observation following transport accident (principal); Z95.2 Presence of prosthetic heart valve; Z87.891 Personal history of nicotine dependence; V63.5XXA Driver of heavy transport vehicle injured in collision with car, pick-up truck or van in traffic accident, initial encounter
CPT/HCPCS: 99282; L0140